=== PATIENT | male | born 1990 | race Caucasian/White ===

== ENCOUNTER 2018-09-08 22:24 | Emergency (ER) | payer OTHER ==
--- NOTE | 2018-09-08 22:36 | ER Report ---
History and Physical Time Seen By MD: 22:35 Hx. of Stated Complaint: PATIENT WAS OUT WALKING HIS DOG WHEN HE FELL AND CUT HIS CHIN ABOUT TWO HOURS AGO HPI/ROS CHIEF COMPLAINT: Chin laceration HISTORY OF PRESENT ILLNESS: 27-year-old male presents ambulatory to the ER complaining of a laceration to the left side of his chin. Patient states he was walking his dog when he got tangled up in the leash and he fell on his chin. He denies LOC. He denies neck pain. He notes normal bite. He denies any dental trauma. His last tetanus shots greater than 10 years. REVIEW OF SYSTEMS: Respiratory: No cough, no dyspnea. Cardiovascular: No chest pain, no palpitations. Gastrointestinal: No vomiting, no abdominal pain. Musculoskeletal: No back pain. Allergies: Coded Allergies: No Known Drug Allergies (Unverified , 09/08/18) Home Meds No Active Prescriptions or Reported Meds Reviewed Nurses Notes: Yes Old Medical Records Reviewed: Yes Hx Substance Use Disorder: No Hx Alcohol Use: Yes Constitutional Vital Sign - Last 24 Hours 09/08/18 09/08/18 09/08/18 09/08/18 22:30 22:31 22:54 23:00 Temp 98.9 Pulse 74 74 Resp 18 B/P (MAP) 134/85 (101) 134/85 115/73 (87) Pulse Ox 93 92 O2 Delivery Room Air Physical Exam General Appearance: The patient is alert, has no immediate need for airway protection and no current signs of toxicity. Palpation of the head and neck reveal no tenderness or trauma. Close examination of the chin reveals a curvilinear approximately 2.0 cm chin laceration HEENT: Pupils equal and round no injection. TMs normal, TMJs nontender, bite normal, no dental trauma on examination of the oropharynx Respiratory: Chest is non tender, lungs are clear to auscultation. Cardiac: regular rate and rhythm Gastrointestinal: Abdomen is soft and non tender, no masses, bowel sounds normal. Musculoskeletal: Neck: Neck is supple and non tender. Extremities have full range of motion and are non tender. Skin: No rashes or lesions. DIFFERENTIAL DIAGNOSIS: After history and physical exam differential diagnosis was considered for chin laceration, foreign body, mandible fracture. Medical Decision Making ED Course/Re-evaluation ED Course Patient was admitted to an examination room. H&P was done. The differential diagnoses was considered. On clinical examination. Patient has no apparent injury except for a chin laceration. It is a curvilinear flap diagonal through the tissue planes. The lacerations closed as noted below. Wound care is discussed, suture removal will be in 7 days. Procedure: Laceration repair. Verbal consent was obtained from the patient. The 2.0 cm laceration on the left chin was anesthetized in the usual fashion. The wound was scrubbed, draped and explored to its base with a gloved finger. There were no deep structures involved. The wound was repaired with 5-0 Prolene 3 sutures. The wound repair was simple. The procedure was performed by myself. Wound care was discussed, suture removal will be in 7 days. Decision to Disposition Date: Sep 08, 2018 Decision to Disposition Time: 23:07 Depart Departure Latest Vital Signs Vital Signs Date Time Temp Pulse Resp B/P (MAP) Pulse Ox O2 Delivery O2 Flow Rate FiO2 09/08/18 23:00 115/73 (87) 09/08/18 22:54 74 92 09/08/18 22:31 98.9 18 Room Air Impression: Primary Impression: Chin laceration Condition: Improved Disposition: HOME OR SELF-CARE New Scripts No Active Prescriptions or Reported Meds Patient Instructions: Facial Laceration (ED) Additional Instructions: Perform daily wound care Have stitches removed in one week Problem Qualifiers Primary Impression: Chin laceration Encounter type: initial encounter Qualified Codes: S01.81XA - Laceration without foreign body of other part of head, initial encounter DENIS GARCIA DO Sep 08, 2018 22:36
[2018-09-08 23:00] VITALS: BP 115/73
== END 2018-09-08 23:20 | disposition home or self-care (01) ==
LOC: ER 22:24
DX: S01.81XA Laceration without foreign body of other part of head, initial encounter (principal); W01.198A Fall on same level from slipping, tripping and stumbling with subsequent striking against other object, initial encounter; Y93.K1 Activity, walking an animal
CPT/HCPCS: 99283